=== PATIENT | female | born 1935 | race African-American/Black ===

== ENCOUNTER 2021-01-31 07:08 | Inpatient (IN) | payer MEDICARE ==
[2021-01-31] MEDS ORDERED: Morphine 4 MG/ML VIAL ONE (07:15)
[2021-01-31 07:26] LABS: #Lymphocytes 1.3 thou/uL (1.20-3.40); #Monocytes 0.3 thou/uL (0.11-0.59); #Neutrophils 3.9 thou/uL (1.40-6.50); %Basophils 0.8 % (0.0-1.0); %Eosinophils 0.6 % (0.0-10.0); %Lymphocytes 23.9 % (21.0-51.0); %Monocytes 4.9 % (0.0-10.0); %Neutrophils 69.9 % (42.0-75.0); Hemoglobin 11.9 g/dL (12.0-16.0); Mean Corpuscular HGB CONC 32.5 g/dL (32.0-36.0); Mean Corpuscular Hemoglobin 33.4 pg (27.0-31.0); Mean Platelet Volume 8.7 fL (7.4-10.4); Platelet Count 228 thou/uL (130-400); RBC Distribution Width 12.3 % (11.5-14.5); Red Blood Cell (RBC) Count 3.55 mill/uL (4.20-5.40); White Blood Cell (WBC) Count 5.6 thou/uL (4.8-10.8)
[2021-01-31 07:52] LABS: CKMB 2.3 ng/mL (0-6.6)
[2021-01-31 08:02] LABS: ALT (SGPT) 9 U/L (8-55); AST (SGOT) 15 U/L (5-34); Alkaline Phosphatase 42 U/L (40-110); Anion Gap 18 mmol/L (10-20); BUN (Urea Nitrogen) 9 mg/dL (9.8-20.1); Bilirubin, Total 0.5 mg/dL (0.2-1.2); Calc. Creatinine Clearance 0 mL/min (70-130); Calcium 9.2 mg/dL (7.8-10.44); Carbon Dioxide 23 mmol/L (23-31); Chloride 100 mmol/L (98-107); Globulin 3.1 g/dL (2.4-3.5); Glucose 178 mg/dL (83-110); Lipase 87 U/L (8-78); Potassium 3.6 mmol/L (3.5-5.1); Protein, Total 7.1 g/dL (5.8-8.1); Sodium 137 mmol/L (136-145)
[2021-01-31] MEDS ORDERED: Famotidine/PF 20 mg/2ml Vial ONE (08:51)
[2021-01-31] MEDS ORDERED: Ketorolac Tromethamine 30 MG/ML VIAL ONE (08:51)
[2021-01-31 10:15] LABS: Troponin I 0.069 ng/mL (< 0.028)
[2021-01-31] MEDS ORDERED: HumaLOG 300 UNITS/3 ML VIAL SC PRN ×2 (10:48)
[2021-01-31] MEDS ORDERED: Acetaminophen 325 MG TAB PO PRN (10:48)
[2021-01-31] MEDS ORDERED: Dextrose 5% in Water 1,000 ML IV PRN (10:48)
[2021-01-31] MEDS ORDERED: Dextrose 50% Abboject 50 ML SYRINGE SLOW IVP PRN (10:48)
[2021-01-31] MEDS ORDERED: Ondansetron ODT 4 MG TAB PO PRN (10:48)
[2021-01-31 11:32] LABS: Magnesium 1.1 mg/dL (1.6-2.6)
[2021-01-31] MEDS ORDERED: Aspirin Chewable 81 MG TAB PO SCH (13:00)
[2021-01-31] MEDS ORDERED: Magnesium 2 GM/50 ML 2 GM in Premix Bag 1 BAG IVPB SCH (13:00)
[2021-01-31 13:40] VITALS: BMI 19.7
[2021-01-31] MEDS: Sodium Chloride 0.9% 1,000 ML IV SCH ×2 (16:14→23:48)
[2021-01-31 16:46] LABS: SARS-CoV-2 PCR by NAA Not Detected (NotDetected)
[2021-01-31 17:15] LABS: Troponin I 0.085 ng/mL (< 0.028)
[2021-01-31] MEDS ORDERED: Pantoprazole 40 MG VIAL IVP SCH (23:00)
[2021-02-01 05:43] LABS: #Eosinphils 0.1 thou/uL (0.0-0.7); #Lymphocytes 1.7 thou/uL (1.20-3.40); #Monocytes 0.6 thou/uL (0.11-0.59); #Neutrophils 2.8 thou/uL (1.40-6.50); %Basophils 0.7 % (0.0-1.0); %Eosinophils 1.4 % (0.0-10.0); %Lymphocytes 32.8 % (21.0-51.0); %Monocytes 11.9 % (0.0-10.0); %Neutrophils 53.2 % (42.0-75.0); Hemoglobin 10.7 g/dL (12.0-16.0); Mean Corpuscular HGB CONC 32.9 g/dL (32.0-36.0); Mean Corpuscular Hemoglobin 33.6 pg (27.0-31.0); Platelet Count 213 thou/uL (130-400); RBC Distribution Width 12.1 % (11.5-14.5); Red Blood Cell (RBC) Count 3.19 mill/uL (4.20-5.40); White Blood Cell (WBC) Count 5.2 thou/uL (4.8-10.8)
[2021-02-01 06:11] LABS: ALT (SGPT) 8 U/L (8-55); AST (SGOT) 14 U/L (5-34); Albumin 3.3 g/dL (3.4-4.8); Alkaline Phosphatase 34 U/L (40-110); Anion Gap 12 mmol/L (10-20); BUN (Urea Nitrogen) 7 mg/dL (9.8-20.1); Bilirubin, Total 0.6 mg/dL (0.2-1.2); Calc. Creatinine Clearance 56 mL/min (70-130); Calcium 8.9 mg/dL (7.8-10.44); Carbon Dioxide 26 mmol/L (23-31); Cardiac Risk 3.6 (Less than 4.5); Chloride 103 mmol/L (98-107); Cholesterol 168 mg/dl (< 200 Desired); Globulin 2.7 g/dL (2.4-3.5); Glucose 98 mg/dL (83-110); HDL Cholesterol 47 mg/dL (>60 Neg Risk); LDL Cholesterol, Calculated 110 mg/dL; Magnesium 1.5 mg/dL (1.6-2.6); Potassium 3.2 mmol/L (3.5-5.1); Sodium 138 mmol/L (136-145); Triglycerides 57 mg/dL (Less than 150)
[2021-02-01] MEDS ORDERED: Artificial Tear Sol 15 ML BOT EA EYE PRN (09:26)
[2021-02-01] MEDS ORDERED: Sodium Chloride 0.65% Nasal 44 ML BOT EA NARE PRN (09:26)
[2021-02-01] MEDS ORDERED: GUAIFENESIN SF SOLN 200 MG/10 ML UDCUP PO PRN (09:26)
[2021-02-01] MEDS ORDERED: hydrALAZINE 20 MG/ML VIAL SLOW IVP PRN (09:26)
[2021-02-01] MEDS ORDERED: Loratadine 10 MG TAB PO PRN (09:26)
[2021-02-01] MEDS ORDERED: Senokot S 8.6-50 MG TAB PO PRN (09:26)
[2021-02-01] MEDS ORDERED: Bisacodyl 5 MG TAB PO PRN (09:26)
[2021-02-01] MEDS ORDERED: Loperamide HCl 2 MG CAP PO PRN (09:26)
[2021-02-01] MEDS ORDERED: Ondansetron PF 4 MG/2 ML Vial IVP PRN (09:26)
[2021-02-01] MEDS ORDERED: Zolpidem Tartrate 5 MG TAB PO PRN (09:26)
[2021-02-01] MEDS ORDERED: Hydrocerin (Eucerin) Cream 120 gm Jar TOP PRN (09:26)
[2021-02-01] MEDS ORDERED: Calcium Carbonate 500 MG ChewTAB PO PRN (09:26)
[2021-02-01] MEDS ORDERED: HYDROcodone/Acetaminophen 5/325 mg Tablet PO PRN (09:26)
[2021-02-01] MEDS ORDERED: Cepastat Lozenges 1 LOZ PO PRN (09:26)
[2021-02-01] MEDS ORDERED: Lisinopril 20 MG TAB PO SCH (10:15)
[2021-02-01] MEDS ORDERED: Amlodipine 5 MG TAB PO SCH (10:15)
[2021-02-01] MEDS: Aspirin Chewable 81 MG TAB PO SCH (10:19)
[2021-02-01] MEDS: Pantoprazole 40 MG VIAL IVP SCH (10:19)
[2021-02-01] MEDS ORDERED: Potassium Chloride 20 MEQ TAB PO SCH (11:30)
[2021-02-01] MEDS ORDERED: Magnesium Sulfate 3 GM in Sodium Chloride 0.9% 100 ML IVPB SCH (12:00)
[2021-02-01] MEDS: Sodium Chloride 0.9% 1,000 ML IV SCH (15:30)
[2021-02-01] MEDS ORDERED: Communication Order-Pharmacy FS SCH (15:30)
[2021-02-01] MEDS: Gabapentin 400 MG CAP PO SCH ×2 (16:06→21:14)
[2021-02-01] MEDS ORDERED: Morphine 4 MG/ML VIAL ONE (18:06)
[2021-02-01] MEDS: Atorvastatin Calcium 40 MG TAB PO SCH (21:14)
[2021-02-01] MEDS: Metoprolol Tartrate 25 MG TAB PO SCH (21:14)
[2021-02-02 04:48] LABS: #Basophils 0.1 thou/uL (0.0-0.2); #Eosinphils 0.2 thou/uL (0.0-0.7); #Monocytes 0.7 thou/uL (0.11-0.59); #Neutrophils 2.9 thou/uL (1.40-6.50); %Basophils 1.3 % (0.0-1.0); %Eosinophils 3.3 % (0.0-10.0); %Lymphocytes 33.9 % (21.0-51.0); %Monocytes 11.9 % (0.0-10.0); %Neutrophils 49.7 % (42.0-75.0); Hemoglobin 11.7 g/dL (12.0-16.0); Mean Corpuscular HGB CONC 33.1 g/dL (32.0-36.0); Mean Corpuscular Hemoglobin 33.8 pg (27.0-31.0); Mean Platelet Volume 8.8 fL (7.4-10.4); Platelet Count 238 thou/uL (130-400); RBC Distribution Width 12.3 % (11.5-14.5); Red Blood Cell (RBC) Count 3.47 mill/uL (4.20-5.40); White Blood Cell (WBC) Count 5.8 thou/uL (4.8-10.8)
[2021-02-02 05:09] LABS: ALT (SGPT) 9 U/L (8-55); AST (SGOT) 15 U/L (5-34); Albumin 3.5 g/dL (3.4-4.8); Alkaline Phosphatase 39 U/L (40-110); Anion Gap 13 mmol/L (10-20); BUN (Urea Nitrogen) 8 mg/dL (9.8-20.1); Bilirubin, Total 0.8 mg/dL (0.2-1.2); Calc. Creatinine Clearance 48 mL/min (70-130); Calcium 8.9 mg/dL (7.8-10.44); Carbon Dioxide 22 mmol/L (23-31); Chloride 105 mmol/L (98-107); Globulin 2.9 g/dL (2.4-3.5); Glucose 110 mg/dL (83-110); Potassium 3.9 mmol/L (3.5-5.1); Protein, Total 6.4 g/dL (5.8-8.1); Sodium 136 mmol/L (136-145)
[2021-02-02] MEDS ORDERED: Sodium Chloride 0.9% 1,000 ML IV SCH ×2 (06:00→08:51)
[2021-02-02] MEDS: Levothyroxine Sodium 50 MCG TAB PO SCH (06:07)
[2021-02-02] MEDS: Metoprolol Tartrate 25 MG TAB PO SCH (06:07)
[2021-02-02] MEDS ORDERED: Heparin 10,000 UNITS/ 10 ML VIAL ONE (06:49)
[2021-02-02] MEDS ORDERED: Fentanyl 100 MCG/2 ML VIAL ONE (08:08)
[2021-02-02] MEDS ORDERED: Midazolam HCl 2 mg/2 ml Vial ONE (08:08)
[2021-02-02] MEDS ORDERED: Protamine Sulfate 50 MG/5 ML VIAL ONE (08:33)
[2021-02-02] MEDS ORDERED: Acetaminophen/Codeine 30-300mg Tablet PO PRN ×2 (08:50)
[2021-02-02] MEDS ORDERED: Amlodipine 5 mg/Benazepril 20 mg CAP PO SCH (09:00)
[2021-02-02] MEDS ORDERED: Amlodipine 5 MG TAB PO SCH (09:00)
[2021-02-02] MEDS ORDERED: Non-Formulary Item 1 EACH (Levothyroxine Sodium [Levothyroxine] 50 MCG Capsule) PO SCH (09:00)
[2021-02-02] MEDS ORDERED: Lisinopril 20 MG TAB PO SCH (09:00)
[2021-02-02] MEDS ORDERED: Carvedilol 6.25 MG TAB PO SCH (09:00)
[2021-02-02] MEDS ORDERED: Sodium Chloride 0.9% 200 ML IV PRN (09:13)
[2021-02-02] MEDS ORDERED: Iopamidol 370 76% 100 ML VIAL ONE (10:53)
[2021-02-02] MEDS ORDERED: Iopamidol 370 76% 50 ML VIAL FS ONE (10:53)
[2021-02-02] MEDS: Pantoprazole 40 MG VIAL IVP SCH (10:57)
[2021-02-02] MEDS: Aspirin Chewable 81 MG TAB PO SCH (10:57)
[2021-02-02] MEDS: Gabapentin 400 MG CAP PO SCH ×3 (10:57→20:28)
[2021-02-02] MEDS: Cyanocobalamin (Vitamin B-12) 1,000 MCG TAB PO SCH (10:58)
[2021-02-02] MEDS: Folic Acid 1 MG TAB PO SCH (10:58)
[2021-02-02] MEDS: Carvedilol 6.25 MG TAB PO SCH (16:41)
[2021-02-02] MEDS: Atorvastatin Calcium 40 MG TAB PO SCH (20:29)
[2021-02-03 05:25] LABS: #Eosinphils 0.1 thou/uL (0.0-0.7); #Lymphocytes 1.4 thou/uL (1.20-3.40); #Monocytes 0.7 thou/uL (0.11-0.59); #Neutrophils 3.4 thou/uL (1.40-6.50); %Basophils 0.7 % (0.0-1.0); %Eosinophils 1.9 % (0.0-10.0); %Lymphocytes 24.8 % (21.0-51.0); %Neutrophils 59.5 % (42.0-75.0); Mean Corpuscular HGB CONC 34.1 g/dL (32.0-36.0); Mean Corpuscular Hemoglobin 34.8 pg (27.0-31.0); Mean Platelet Volume 9.6 fL (7.4-10.4); Platelet Count 228 thou/uL (130-400); RBC Distribution Width 12.3 % (11.5-14.5); Red Blood Cell (RBC) Count 3.17 mill/uL (4.20-5.40); White Blood Cell (WBC) Count 5.6 thou/uL (4.8-10.8)
[2021-02-03 05:37] LABS: ALT (SGPT) 9 U/L (8-55); AST (SGOT) 14 U/L (5-34); Albumin 3.1 g/dL (3.4-4.8); Alkaline Phosphatase 38 U/L (40-110); Anion Gap 12 mmol/L (10-20); BUN (Urea Nitrogen) 7 mg/dL (9.8-20.1); Bilirubin, Total 0.8 mg/dL (0.2-1.2); Calc. Creatinine Clearance 55 mL/min (70-130); Calcium 8.4 mg/dL (7.8-10.44); Carbon Dioxide 23 mmol/L (23-31); Chloride 105 mmol/L (98-107); Globulin 2.8 g/dL (2.4-3.5); Glucose 100 mg/dL (83-110); Potassium 3.5 mmol/L (3.5-5.1); Protein, Total 5.9 g/dL (5.8-8.1); Sodium 136 mmol/L (136-145)
[2021-02-03] MEDS: Levothyroxine Sodium 50 MCG TAB PO SCH (05:50)
[2021-02-03] MEDS: Gabapentin 400 MG CAP PO SCH ×3 (09:28→21:18)
[2021-02-03] MEDS: Cyanocobalamin (Vitamin B-12) 1,000 MCG TAB PO SCH (09:28)
[2021-02-03] MEDS: Furosemide 20 MG TAB PO SCH (09:28)
[2021-02-03] MEDS: Folic Acid 1 MG TAB PO SCH (09:29)
[2021-02-03] MEDS: Carvedilol 6.25 MG TAB PO SCH ×2 (09:29→17:44)
[2021-02-03] MEDS: Aspirin Chewable 81 MG TAB PO SCH (09:29)
[2021-02-03] MEDS ORDERED: Lidocaine 1% PF 5 ML VIAL ONE (13:23)
[2021-02-03] MEDS ORDERED: PROPOFOL 200 MG/20 ML VIAL ONE (13:23)
[2021-02-03] MEDS: Atorvastatin Calcium 40 MG TAB PO SCH (21:17)
[2021-02-04] MEDS: Levothyroxine Sodium 50 MCG TAB PO SCH (06:06)
[2021-02-04 07:53] VITALS: TEMP 98.3
[2021-02-04] MEDS: Furosemide 20 MG TAB PO SCH (08:58)
[2021-02-04] MEDS: Cyanocobalamin (Vitamin B-12) 1,000 MCG TAB PO SCH (08:58)
[2021-02-04] MEDS: Gabapentin 400 MG CAP PO SCH (08:58)
[2021-02-04 08:59] VITALS: BP 139/82
[2021-02-04] MEDS: Folic Acid 1 MG TAB PO SCH (08:59)
[2021-02-04] MEDS: Carvedilol 6.25 MG TAB PO SCH (08:59)
[2021-02-04] MEDS: Aspirin Chewable 81 MG TAB PO SCH (08:59)
== END 2021-02-04 10:32 | disposition home or self-care (01) | DRG 280 ==
LOC: ERS 07:08 → ERHOLD 08:42 → 2NO 13:00 → OBSVTOIN 02-01 20:50
PROVIDERS: ADMIT Family Medicine; ATTEND Internal Medicine
PROC: 4A023N7 Measurement of Cardiac Sampling and Pressure, Left Heart, Percutaneous Approach (ICD-10-PCS; principal; 2021-02-02)
PROC: B2111ZZ Fluoroscopy of Multiple Coronary Arteries using Low Osmolar Contrast (ICD-10-PCS; 2021-02-02)
PROC: 0DB68ZX Excision of Stomach, Via Natural or Artificial Opening Endoscopic, Diagnostic (ICD-10-PCS; 2021-02-03)
PROC: 0W3P8ZZ Control Bleeding in Gastrointestinal Tract, Via Natural or Artificial Opening Endoscopic (ICD-10-PCS; 2021-02-03)
DX: R07.89 Other chest pain (principal); K25.4 Chronic or unspecified gastric ulcer with hemorrhage; I21.A1 Myocardial infarction type 2; I50.20 Unspecified systolic (congestive) heart failure; I42.8 Other cardiomyopathies; Z20.822 Contact with and (suspected) exposure to COVID-19; E11.9 Type 2 diabetes mellitus without complications; K80.20 Calculus of gallbladder without cholecystitis without obstruction; E03.9 Hypothyroidism, unspecified; D53.9 Nutritional anemia, unspecified; R00.8 Other abnormalities of heart beat; I11.0 Hypertensive heart disease with heart failure; K44.9 Diaphragmatic hernia without obstruction or gangrene; K86.89 Other specified diseases of pancreas; M19.90 Unspecified osteoarthritis, unspecified site; E87.6 Hypokalemia; E83.42 Hypomagnesemia; Z90.49 Acquired absence of other specified parts of digestive tract; Z90.710 Acquired absence of both cervix and uterus; Z98.890 Other specified postprocedural states
CPT/HCPCS: 36415; 36416; 71045; 71275; 74174; 74181; 76705; 80053; 80061; 82553; 83690; 83735; 84443; 84484; 85025; 85347; 88305; 88312; 90471; 90732; 93005; 93010; 93306; 93458; 96374; 96375; 96376; 99152; C9113; G0009; G0378; J1644; J1885; J2250; J2270; J2704; J2720; J3010; J3475; J3490; J7050; Q0162; Q9967; S0028; U0003; U0005

== ENCOUNTER 2021-02-04 16:24 | Inpatient (IN) | payer MEDICARE ==
[2021-02-04 17:19] LABS: #Eosinphils 0.1 thou/uL (0.0-0.7); #Monocytes 0.7 thou/uL (0.11-0.59); #Neutrophils 3.8 thou/uL (1.40-6.50); %Basophils 0.5 % (0.0-1.0); %Eosinophils 1.5 % (0.0-10.0); %Lymphocytes 17.8 % (21.0-51.0); %Monocytes 12.9 % (0.0-10.0); %Neutrophils 67.3 % (42.0-75.0); Hemoglobin 12.6 g/dL (12.0-16.0); Mean Corpuscular HGB CONC 32.5 g/dL (32.0-36.0); Mean Corpuscular Hemoglobin 33.3 pg (27.0-31.0); Mean Platelet Volume 8.9 fL (7.4-10.4); Platelet Count 235 thou/uL (130-400); RBC Distribution Width 12.3 % (11.5-14.5); Red Blood Cell (RBC) Count 3.77 mill/uL (4.20-5.40); White Blood Cell (WBC) Count 5.7 thou/uL (4.8-10.8)
[2021-02-04] MEDS ORDERED: Famotidine/PF 20 mg/2ml Vial ONE (17:32)
[2021-02-04] MEDS ORDERED: Pantoprazole 40 MG VIAL ONE (17:32)
[2021-02-04] MEDS ORDERED: Water For Inject, Bacteriostat 30 ML ONE (17:32)
[2021-02-04 17:36] LABS: ALT (SGPT) 28 U/L (8-55); AST (SGOT) 53 U/L (5-34); Alkaline Phosphatase 69 U/L (40-110); Anion Gap 19 mmol/L (10-20); BUN (Urea Nitrogen) 12 mg/dL (9.8-20.1); Bilirubin, Total 0.7 mg/dL (0.2-1.2); Calc. Creatinine Clearance 0 mL/min (70-130); Calcium 7.6 mg/dL (7.8-10.44); Carbon Dioxide 17 mmol/L (23-31); Chloride 102 mmol/L (98-107); Globulin 2.9 g/dL (2.4-3.5); Glucose 233 mg/dL (83-110); Potassium 3.9 mmol/L (3.5-5.1); Protein, Total 5.9 g/dL (5.8-8.1); Sodium 134 mmol/L (136-145)
[2021-02-04 18:16] LABS: CKMB 1.6 ng/mL (0-6.6)
[2021-02-04] MEDS ORDERED: Acetaminophen 650 MG Suppository PR PRN (20:29)
[2021-02-04] MEDS ORDERED: Ondansetron PF 4 MG/2 ML Vial IVP PRN (20:29)
[2021-02-04] MEDS ORDERED: Acetaminophen 325 MG TAB PO PRN (20:29)
[2021-02-04] MEDS ORDERED: Ondansetron ODT 4 MG TAB PO PRN (20:29)
[2021-02-04 20:58] LABS: Troponin I 1.582 ng/mL (< 0.028)
[2021-02-04 22:29] VITALS: BMI 18.8
[2021-02-04] MEDS ORDERED: Morphine 4 MG/ML VIAL SLOW IVP SCH (22:45)
[2021-02-04] MEDS ORDERED: Dextrose 50% Abboject 50 ML SYRINGE SLOW IVP PRN (22:56)
[2021-02-04] MEDS ORDERED: HumaLOG 300 UNITS/3 ML VIAL SC PRN ×2 (22:56)
[2021-02-04] MEDS ORDERED: Dextrose 5% in Water 1,000 ML IV PRN (22:56)
[2021-02-04] MEDS: Sucralfate 1 GM TAB PO SCH (22:57)
[2021-02-04] MEDS ORDERED: Sodium Chloride 0.9% 1,000 ML IV SCH (23:30)
[2021-02-04 23:54] LABS: #Eosinphils 0.1 thou/uL (0.0-0.7); #Lymphocytes 1.3 thou/uL (1.20-3.40); #Monocytes 0.8 thou/uL (0.11-0.59); #Neutrophils 3.2 thou/uL (1.40-6.50); %Basophils 0.6 % (0.0-1.0); %Lymphocytes 24.2 % (21.0-51.0); %Monocytes 14.7 % (0.0-10.0); %Neutrophils 59.5 % (42.0-75.0); Hemoglobin 12.1 g/dL (12.0-16.0); Mean Corpuscular HGB CONC 32.9 g/dL (32.0-36.0); Mean Corpuscular Hemoglobin 33.9 pg (27.0-31.0); Mean Platelet Volume 8.9 fL (7.4-10.4); Platelet Count 241 thou/uL (130-400); RBC Distribution Width 12.4 % (11.5-14.5); Red Blood Cell (RBC) Count 3.58 mill/uL (4.20-5.40); White Blood Cell (WBC) Count 5.4 thou/uL (4.8-10.8)
[2021-02-05 00:03] LABS: Troponin I 5.561 ng/mL (< 0.028)
[2021-02-05 05:26] LABS: Mean Corpuscular HGB CONC 33.1 g/dL (32.0-36.0); Mean Corpuscular Hemoglobin 33.6 pg (27.0-31.0); Mean Platelet Volume 8.8 fL (7.4-10.4); Platelet Count 221 thou/uL (130-400); RBC Distribution Width 12.3 % (11.5-14.5); Red Blood Cell (RBC) Count 3.57 mill/uL (4.20-5.40); White Blood Cell (WBC) Count 4.7 thou/uL (4.8-10.8)
[2021-02-05 05:35] LABS: Anion Gap 12 mmol/L (10-20); BUN (Urea Nitrogen) 9 mg/dL (9.8-20.1); Calc. Creatinine Clearance 55 mL/min (70-130); Calcium 8.5 mg/dL (7.8-10.44); Carbon Dioxide 23 mmol/L (23-31); Chloride 105 mmol/L (98-107); Glucose 122 mg/dL (83-110); Potassium 3.4 mmol/L (3.5-5.1); Sodium 137 mmol/L (136-145)
[2021-02-05] MEDS: Morphine 4 MG/ML VIAL SLOW IVP PRN (05:48)
[2021-02-05 06:04] LABS: Troponin I 14.815 ng/mL (< 0.028)
[2021-02-05 06:18] LABS: Lactic Acid 1.2 mmol/L (0.5-2.2)
[2021-02-05 06:29] LABS: Eosinophils 4 % (0-10); Lymphocytes 32 % (21-51); MDiff Complete? YES; Monocytes 15 % (0-10); Neutrophil 49 % (42-75)
[2021-02-05] MEDS ORDERED: Potassium Chloride 20 MEQ TAB PO SCH (07:45)
[2021-02-05] MEDS ORDERED: Heparin 10,000 UNITS/ 10 ML VIAL ONE (07:48)
[2021-02-05] MEDS ORDERED: Nitroglycerin 100MG/250ML BOT 0 ML ONE (07:49)
[2021-02-05] MEDS ORDERED: Fentanyl 100 MCG/2 ML VIAL ONE (08:12)
[2021-02-05] MEDS ORDERED: Midazolam HCl 2 mg/2 ml Vial ONE (08:12)
[2021-02-05] MEDS ORDERED: Iopamidol 370 76% 100 ML VIAL ONE (08:26)
[2021-02-05] MEDS ORDERED: Acetaminophen/Codeine 30-300mg Tablet PO PRN (08:36)
[2021-02-05] MEDS ORDERED: Sodium Chloride 0.9% 200 ML IV PRN (08:36)
[2021-02-05] MEDS ORDERED: Sodium Chloride 0.9% 250 ML IV SCH (08:45)
[2021-02-05] MEDS: Sucralfate 1 GM TAB PO SCH ×4 (10:26→20:41)
[2021-02-05] MEDS: Nitroglycerin 2% Ointment 1 INCH/1 GM Packet TOP SCH ×2 (10:27→20:47)
[2021-02-05] MEDS: Pantoprazole 40 MG VIAL IVP SCH (10:28)
[2021-02-05] MEDS ORDERED: Metoprolol Tartrate 5 MG/5 ML VIAL IVP PRN (10:42)
[2021-02-05 11:02] LABS: Magnesium 1.4 mg/dL (1.6-2.6)
[2021-02-05 14:39] LABS: Bilirubin Negative (Negative); Blood, Urine Negative (Negative); Clarity Clear (Clear); Glucose, Urine (Dipstick) Normal (Negative); Ketone, Urine Negative (Negative); Leukocyte 500 Leu/uL (Negative); Nitrite Negative (Negative); Protein, Urine (Dipstick) 10 mg/dL (Neg-Trace); RBC/HPF 0-3 HPF (0-3); Urobilinogen Normal mg/dL (Less than 2); pH, Urine 5.5 (5.0-9.0)
[2021-02-05 14:54] LABS: Bacteria/HPF 2+ HPF (None Seen); Specific Gravity, Urine 1.052 (1.002-1.036)
[2021-02-05 14:55] LABS: Urine Culture Reflex No No
[2021-02-05] MEDS ORDERED: Electrolyte Replacement Protocol 1 EACH FS SCH (16:30)
[2021-02-05] MEDS ORDERED: Electrolyte Replacement Protocol FS PRN (16:30)
[2021-02-05] MEDS ORDERED: Sucralfate 1 GM TAB PO SCH (20:29)
[2021-02-05] MEDS: Atorvastatin Calcium 40 MG TAB PO SCH (20:40)
[2021-02-05] MEDS: Gabapentin 400 MG CAP PO SCH (20:40)
[2021-02-05] MEDS: metFORMIN 500 MG TAB PO SCH (20:40)
[2021-02-05] MEDS ORDERED: Cepastat Lozenges 1 LOZ PO PRN (22:28)
[2021-02-05] MEDS ORDERED: Mag-Al 1200 mg/1200 mg/30 ML UDCUP PO PRN (22:40)
[2021-02-06 05:20] LABS: Anion Gap 10 mmol/L (10-20); BUN (Urea Nitrogen) 7 mg/dL (9.8-20.1); Calc. Creatinine Clearance 58 mL/min (70-130); Calcium 8.6 mg/dL (7.8-10.44); Carbon Dioxide 25 mmol/L (23-31); Chloride 103 mmol/L (98-107); Glucose 128 mg/dL (83-110); Magnesium 1.2 mg/dL (1.6-2.6); Potassium 3.1 mmol/L (3.5-5.1); Sodium 135 mmol/L (136-145)
[2021-02-06] MEDS: Levothyroxine Sodium 50 MCG TAB PO SCH (05:25)
[2021-02-06] MEDS ORDERED: Potassium Chloride 20 MEQ TAB PO SCH (05:30)
[2021-02-06] MEDS ORDERED: Magnesium 2 GM/50 ML 2 GM in Premix Bag 1 BAG IVPB SCH (05:30)
[2021-02-06] MEDS: Magnesium 2 GM/50 ML 2 GM in Premix Bag 1 BAG IVPB SCH ×2 (06:27→09:26)
[2021-02-06] MEDS: Sucralfate 1 GM TAB PO SCH ×4 (09:31→20:38)
[2021-02-06] MEDS: Carvedilol 6.25 MG TAB PO SCH ×2 (09:32→17:12)
[2021-02-06] MEDS: Aspirin Chewable 81 MG TAB PO SCH (09:32)
[2021-02-06] MEDS: Furosemide 20 MG TAB PO SCH (09:33)
[2021-02-06] MEDS: Folic Acid 1 MG TAB PO SCH (09:33)
[2021-02-06] MEDS: Gabapentin 400 MG CAP PO SCH ×3 (09:33→20:38)
[2021-02-06] MEDS: Cyanocobalamin (Vitamin B-12) 1,000 MCG TAB PO SCH (09:33)
[2021-02-06] MEDS: Nitroglycerin 2% Ointment 1 INCH/1 GM Packet TOP SCH ×2 (09:34→20:42)
[2021-02-06] MEDS: metFORMIN 500 MG TAB PO SCH ×2 (09:34→20:39)
[2021-02-06] MEDS: Pantoprazole 40 MG VIAL IVP SCH (09:44)
[2021-02-06 14:57] LABS: Magnesium 2.1 mg/dL (1.6-2.6)
[2021-02-06] MEDS: Atorvastatin Calcium 40 MG TAB PO SCH (20:39)
[2021-02-07 05:23] LABS: Hemoglobin 11.2 g/dL (12.0-16.0); Mean Corpuscular HGB CONC 31.6 g/dL (32.0-36.0); Mean Corpuscular Hemoglobin 32.4 pg (27.0-31.0); Mean Platelet Volume 8.7 fL (7.4-10.4); Platelet Count 236 thou/uL (130-400); RBC Distribution Width 12.1 % (11.5-14.5); Red Blood Cell (RBC) Count 3.47 mill/uL (4.20-5.40); White Blood Cell (WBC) Count 4.8 thou/uL (4.8-10.8)
[2021-02-07 05:34] LABS: Anion Gap 10 mmol/L (10-20); BUN (Urea Nitrogen) 8 mg/dL (9.8-20.1); Calc. Creatinine Clearance 54 mL/min (70-130); Calcium 8.4 mg/dL (7.8-10.44); Carbon Dioxide 25 mmol/L (23-31); Chloride 103 mmol/L (98-107); Glucose 124 mg/dL (83-110); Magnesium 1.8 mg/dL (1.6-2.6); Potassium 3.9 mmol/L (3.5-5.1); Sodium 134 mmol/L (136-145)
[2021-02-07] MEDS ORDERED: Magnesium 2 GM/50 ML 2 GM in Premix Bag 1 BAG IVPB SCH (06:00)
[2021-02-07 06:27] LABS: Band 4 % (5-11); Eosinophils 4 % (0-10); Lymphocytes 37 % (21-51); MDiff Complete? YES; Monocytes 4 % (0-10); Neutrophil 51 % (42-75)
[2021-02-07] MEDS: Levothyroxine Sodium 50 MCG TAB PO SCH (06:33)
[2021-02-07] MEDS: Nitroglycerin 2% Ointment 1 INCH/1 GM Packet TOP SCH ×2 (08:03→20:00)
[2021-02-07] MEDS: Gabapentin 400 MG CAP PO SCH ×3 (08:04→19:56)
[2021-02-07] MEDS: Aspirin Chewable 81 MG TAB PO SCH (08:04)
[2021-02-07] MEDS: metFORMIN 500 MG TAB PO SCH ×2 (08:04→19:55)
[2021-02-07] MEDS: Sucralfate 1 GM TAB PO SCH ×4 (08:04→19:55)
[2021-02-07] MEDS: Pantoprazole 40 MG VIAL IVP SCH (08:05)
[2021-02-07] MEDS: Folic Acid 1 MG TAB PO SCH (08:05)
[2021-02-07] MEDS: Cyanocobalamin (Vitamin B-12) 1,000 MCG TAB PO SCH (08:05)
[2021-02-07] MEDS: Carvedilol 6.25 MG TAB PO SCH ×2 (08:05→16:21)
[2021-02-07] MEDS: Furosemide 20 MG TAB PO SCH (08:06)
[2021-02-07] MEDS ORDERED: Milk Of Magnesia 30 ML UDCUP PO PRN (11:05)
[2021-02-07] MEDS ORDERED: Docusate 100 MG CAP PO PRN (11:05)
[2021-02-07] MEDS ORDERED: Sodium Chloride 0.9% 250 ML 250 ML IV SCH (16:15)
[2021-02-07] MEDS ORDERED: Sodium Chloride 0.9% 250 ML IV SCH (17:15)
[2021-02-07 17:52] LABS: #Eosinphils 0.2 thou/uL (0.0-0.7); #Lymphocytes 1.3 thou/uL (1.20-3.40); #Monocytes 0.8 thou/uL (0.11-0.59); #Neutrophils 3.2 thou/uL (1.40-6.50); %Basophils 0.5 % (0.0-1.0); %Eosinophils 3.8 % (0.0-10.0); %Lymphocytes 23.9 % (21.0-51.0); %Monocytes 13.7 % (0.0-10.0); %Neutrophils 58.1 % (42.0-75.0); Hemoglobin 11.3 g/dL (12.0-16.0); Mean Corpuscular HGB CONC 32.2 g/dL (32.0-36.0); Mean Corpuscular Hemoglobin 33.3 pg (27.0-31.0); Mean Platelet Volume 8.8 fL (7.4-10.4); Platelet Count 210 thou/uL (130-400); RBC Distribution Width 12.2 % (11.5-14.5); White Blood Cell (WBC) Count 5.5 thou/uL (4.8-10.8)
[2021-02-07 18:14] LABS: Anion Gap 12 mmol/L (10-20); BUN (Urea Nitrogen) 10 mg/dL (9.8-20.1); Calc. Creatinine Clearance 49 mL/min (70-130); Calcium 8.5 mg/dL (7.8-10.44); Carbon Dioxide 22 mmol/L (23-31); Chloride 102 mmol/L (98-107); Glucose 138 mg/dL (83-110); Potassium 4.4 mmol/L (3.5-5.1); Sodium 132 mmol/L (136-145)
[2021-02-07] MEDS: Atorvastatin Calcium 40 MG TAB PO SCH (19:56)
[2021-02-07 23:45] LABS: Bacteria/HPF None Seen HPF (None Seen); Bilirubin Negative (Negative); Blood, Urine Negative (Negative); Clarity Clear (Clear); Glucose, Urine (Dipstick) Normal (Negative); Ketone, Urine Negative (Negative); Leukocyte 75 Leu/uL (Negative); Nitrite Negative (Negative); Protein, Urine (Dipstick) Negative (Neg-Trace); RBC/HPF 0-3 HPF (0-3); Specific Gravity, Urine 1.013 (1.002-1.036); Squamous Epithelial 0-3 HPF (0-3); Urobilinogen Normal mg/dL (Less than 2)
[2021-02-07 23:46] LABS: Urine Culture Reflex Yes Yes
[2021-02-08] MEDS: Morphine 4 MG/ML VIAL SLOW IVP PRN (04:07)
[2021-02-08 05:30] LABS: Hemoglobin 11.2 g/dL (12.0-16.0); Mean Corpuscular HGB CONC 32.9 g/dL (32.0-36.0); Mean Corpuscular Hemoglobin 33.5 pg (27.0-31.0); Mean Platelet Volume 8.5 fL (7.4-10.4); Platelet Count 234 thou/uL (130-400); RBC Distribution Width 12.1 % (11.5-14.5); Red Blood Cell (RBC) Count 3.34 mill/uL (4.20-5.40); White Blood Cell (WBC) Count 4.6 thou/uL (4.8-10.8)
[2021-02-08] MEDS: Levothyroxine Sodium 50 MCG TAB PO SCH (05:41)
[2021-02-08 05:48] LABS: Anion Gap 9 mmol/L (10-20); BUN (Urea Nitrogen) 11 mg/dL (9.8-20.1); Calc. Creatinine Clearance 50 mL/min (70-130); Calcium 8.4 mg/dL (7.8-10.44); Carbon Dioxide 26 mmol/L (23-31); Chloride 103 mmol/L (98-107); Glucose 123 mg/dL (83-110); Magnesium 1.7 mg/dL (1.6-2.6); Potassium 4.1 mmol/L (3.5-5.1); Sodium 134 mmol/L (136-145)
[2021-02-08 06:01] LABS: Band 2 % (5-11); Eosinophils 3 % (0-10); Lymphocytes 34 % (21-51); MDiff Complete? YES; Monocytes 7 % (0-10); Neutrophil 53 % (42-75); Reactive Lymphocytes 1 % (0-10)
[2021-02-08] MEDS ORDERED: Magnesium 2 GM/50 ML 2 GM in Premix Bag 1 BAG IVPB SCH (06:15)
[2021-02-08] MEDS: Furosemide 20 MG TAB PO SCH (07:41)
[2021-02-08] MEDS: Cyanocobalamin (Vitamin B-12) 1,000 MCG TAB PO SCH (09:07)
[2021-02-08] MEDS: Gabapentin 400 MG CAP PO SCH ×3 (09:07→20:59)
[2021-02-08] MEDS: Sucralfate 1 GM TAB PO SCH ×4 (09:07→21:03)
[2021-02-08] MEDS: metFORMIN 500 MG TAB PO SCH ×2 (09:07→21:00)
[2021-02-08] MEDS: Aspirin Chewable 81 MG TAB PO SCH (09:07)
[2021-02-08] MEDS: Folic Acid 1 MG TAB PO SCH (09:07)
[2021-02-08] MEDS: Pantoprazole 40 MG VIAL IVP SCH (09:08)
[2021-02-08] MEDS: Nitroglycerin 2% Ointment 1 INCH/1 GM Packet TOP SCH (09:08)
[2021-02-08] MEDS ORDERED: Ketorolac Tromethamine 30 MG/ML VIAL IVP PRN (19:17)
[2021-02-08] MEDS: Diclofenac 1% 100 GM GEL TP SCH (20:57)
[2021-02-08] MEDS: Atorvastatin Calcium 40 MG TAB PO SCH (21:00)
[2021-02-09 05:41] LABS: #Basophils 0.1 thou/uL (0.0-0.2); #Eosinphils 0.3 thou/uL (0.0-0.7); #Lymphocytes 1.8 thou/uL (1.20-3.40); #Monocytes 0.8 thou/uL (0.11-0.59); #Neutrophils 2.8 thou/uL (1.40-6.50); %Eosinophils 4.5 % (0.0-10.0); %Lymphocytes 31.1 % (21.0-51.0); %Monocytes 14.2 % (0.0-10.0); %Neutrophils 49.3 % (42.0-75.0); Hemoglobin 11.5 g/dL (12.0-16.0); Mean Corpuscular HGB CONC 33.3 g/dL (32.0-36.0); Mean Corpuscular Hemoglobin 34.1 pg (27.0-31.0); Mean Platelet Volume 8.4 fL (7.4-10.4); Platelet Count 255 thou/uL (130-400); RBC Distribution Width 12.1 % (11.5-14.5); Red Blood Cell (RBC) Count 3.37 mill/uL (4.20-5.40); White Blood Cell (WBC) Count 5.7 thou/uL (4.8-10.8)
[2021-02-09 05:55] LABS: Anion Gap 14 mmol/L (10-20); BUN (Urea Nitrogen) 10 mg/dL (9.8-20.1); Calc. Creatinine Clearance 49 mL/min (70-130); Calcium 8.7 mg/dL (7.8-10.44); Carbon Dioxide 20 mmol/L (23-31); Chloride 102 mmol/L (98-107); Glucose 133 mg/dL (83-110); Magnesium 1.5 mg/dL (1.6-2.6); Potassium 4.4 mmol/L (3.5-5.1); Sodium 132 mmol/L (136-145)
[2021-02-09] MEDS: Levothyroxine Sodium 50 MCG TAB PO SCH (06:06)
[2021-02-09] MEDS ORDERED: Magnesium 2 GM/50 ML 2 GM in Premix Bag 1 BAG IVPB SCH (06:30)
[2021-02-09 07:50] VITALS: TEMP 97.8
[2021-02-09] MEDS: Sucralfate 1 GM TAB PO SCH ×3 (08:42→17:26)
[2021-02-09] MEDS: Gabapentin 400 MG CAP PO SCH ×2 (08:43→15:01)
[2021-02-09] MEDS: Pantoprazole 40 MG VIAL IVP SCH (08:43)
[2021-02-09] MEDS: metFORMIN 500 MG TAB PO SCH (08:43)
[2021-02-09] MEDS: Cyanocobalamin (Vitamin B-12) 1,000 MCG TAB PO SCH (08:43)
[2021-02-09] MEDS: Folic Acid 1 MG TAB PO SCH (08:43)
[2021-02-09] MEDS: Aspirin Chewable 81 MG TAB PO SCH (08:43)
[2021-02-09] MEDS: Diclofenac 1% 100 GM GEL TP SCH ×2 (08:44→15:01)
[2021-02-09] MEDS ORDERED: Amiodarone 200 MG TAB PO SCH ×2 (09:30→21:00)
[2021-02-09 12:01] VITALS: BP 125/87
[2021-02-09 14:01] LABS: Magnesium 1.8 mg/dL (1.6-2.6)
[2021-02-23] MEDS ORDERED: Amiodarone 200 MG TAB PO SCH (09:00)
== END 2021-02-09 17:42 | disposition home or self-care (01) | DRG 281 ==
LOC: ERS 16:24 → 2SW 19:50 → OBSVTOIN 02-05 16:27
PROVIDERS: ADMIT Student in an Organized Health Care Education/Training Program; ATTEND Internal Medicine
PROC: 4A023N7 Measurement of Cardiac Sampling and Pressure, Left Heart, Percutaneous Approach (ICD-10-PCS; principal; 2021-02-05)
PROC: B2111ZZ Fluoroscopy of Multiple Coronary Arteries using Low Osmolar Contrast (ICD-10-PCS; 2021-02-05)
PROC: B2151ZZ Fluoroscopy of Left Heart using Low Osmolar Contrast (ICD-10-PCS; 2021-02-05)
DX: I51.4 Myocarditis, unspecified (principal); I21.4 Non-ST elevation (NSTEMI) myocardial infarction; I50.22 Chronic systolic (congestive) heart failure; E87.1 Hypo-osmolality and hyponatremia; I42.8 Other cardiomyopathies; I47.2 Ventricular tachycardia; N39.0 Urinary tract infection, site not specified; Z66 Do not resuscitate; Z20.822 Contact with and (suspected) exposure to COVID-19; I11.0 Hypertensive heart disease with heart failure; E11.9 Type 2 diabetes mellitus without complications; E78.5 Hyperlipidemia, unspecified; E03.9 Hypothyroidism, unspecified; M19.90 Unspecified osteoarthritis, unspecified site; K27.9 Peptic ulcer, site unspecified, unspecified as acute or chronic, without hemorrhage or perforation; K57.10 Diverticulosis of small intestine without perforation or abscess without bleeding; E83.42 Hypomagnesemia; K59.00 Constipation, unspecified; E87.6 Hypokalemia; I49.3 Ventricular premature depolarization; Z88.0 Allergy status to penicillin; Z88.2 Allergy status to sulfonamides; Z79.890 Hormone replacement therapy; Z79.84 Long term (current) use of oral hypoglycemic drugs; Z79.82 Long term (current) use of aspirin; Z79.899 Other long term (current) drug therapy; Z90.49 Acquired absence of other specified parts of digestive tract; Z90.710 Acquired absence of both cervix and uterus; Z79.01 Long term (current) use of anticoagulants; I95.9 Hypotension, unspecified
CPT/HCPCS: 36415; 36416; 71045; 71275; 74177; 80048; 80053; 81001; 82553; 83605; 83690; 83735; 83880; 84484; 85025; 87086; 93005; 93306; 93454; 94760; 96374; 96375; 99152; C1769; C9113; J1644; J1815; J1956; J2250; J2270; J3010; J3475; J7030; J7050; Q9967; S0028

== ENCOUNTER 2021-02-25 00:05 | Inpatient (IN) | payer MEDICARE ==
[2021-02-25] MEDS ORDERED: methylPREDNISolone Sod Succ 40 MG VIAL ONE (00:40)
[2021-02-25 00:43] LABS: #Basophils 0.1 thou/uL (0.0-0.2); #Eosinphils 0.1 thou/uL (0.0-0.7); #Lymphocytes 1.4 thou/uL (1.20-3.40); #Monocytes 0.9 thou/uL (0.11-0.59); #Neutrophils 6.4 thou/uL (1.40-6.50); %Lymphocytes 15.7 % (21.0-51.0); %Monocytes 10.2 % (0.0-10.0); Hemoglobin 10.2 g/dL (12.0-16.0); Mean Corpuscular HGB CONC 32.9 g/dL (32.0-36.0); Mean Platelet Volume 7.7 fL (7.4-10.4); Platelet Count 301 thou/uL (130-400); RBC Distribution Width 12.8 % (11.5-14.5); Red Blood Cell (RBC) Count 2.99 mill/uL (4.20-5.40); White Blood Cell (WBC) Count 8.8 thou/uL (4.8-10.8)
[2021-02-25] MEDS ORDERED: Aspirin 325 MG TAB ONE (01:04)
[2021-02-25 01:38] LABS: CKMB 2.1 ng/mL (0-6.6)
[2021-02-25] MEDS ORDERED: Furosemide 40 MG/4 ML VIAL ONE (01:44)
[2021-02-25] MEDS ORDERED: Morphine 4 MG/ML VIAL ONE (01:44)
[2021-02-25] MEDS ORDERED: Nitroglycerin 2% Ointment 1 INCH/1 GM Packet ONE (01:44)
[2021-02-25 02:07] LABS: SARS-CoV-2 NAA Rapid Test Not Detected (NotDetected)
[2021-02-25 06:08] LABS: ALT (SGPT) 13 U/L (8-55); AST (SGOT) 18 U/L (5-34); Albumin 3.1 g/dL (3.4-4.8); Alkaline Phosphatase 68 U/L (40-110); Anion Gap 13 mmol/L (10-20); BUN (Urea Nitrogen) 29 mg/dL (9.8-20.1); Bilirubin, Total 0.9 mg/dL (0.2-1.2); Calc. Creatinine Clearance 0 mL/min (70-130); Calcium 9.4 mg/dL (7.8-10.44); Carbon Dioxide 29 mmol/L (23-31); Chloride 97 mmol/L (98-107); Globulin 3.3 g/dL (2.4-3.5); Glucose 180 mg/dL (83-110); Potassium 4.1 mmol/L (3.5-5.1); Protein, Total 6.4 g/dL (5.8-8.1); Sodium 135 mmol/L (136-145)
[2021-02-25 06:13] LABS: Troponin I 0.254 ng/mL (< 0.028)
[2021-02-25 09:08] LABS: Troponin I 0.228 ng/mL (< 0.028)
[2021-02-25] MEDS ORDERED: Dextrose 50% Abboject 50 ML SYRINGE SLOW IVP PRN (10:56)
[2021-02-25] MEDS ORDERED: Ondansetron ODT 4 MG TAB PO PRN (10:56)
[2021-02-25] MEDS ORDERED: Dextrose 5% in Water 1,000 ML IV PRN (10:56)
[2021-02-25] MEDS ORDERED: hydrALAZINE 20 MG/ML VIAL SLOW IVP PRN (10:56)
[2021-02-25] MEDS ORDERED: HumaLOG 300 UNITS/3 ML VIAL SC PRN (10:56)
[2021-02-25] MEDS ORDERED: Ondansetron PF 4 MG/2 ML Vial IVP PRN (10:56)
[2021-02-25 12:08] LABS: Bilirubin Negative (Negative); Blood, Urine Negative (Negative); Clarity Clear (Clear); Glucose, Urine (Dipstick) Normal (Negative); Ketone, Urine Negative (Negative); Leukocyte Negative Leu/uL (Negative); Nitrite Negative (Negative); Protein, Urine (Dipstick) Negative (Neg-Trace); Specific Gravity, Urine 1.014 (1.002-1.036); Urobilinogen Normal mg/dL (Less than 2); pH, Urine 7.5 (5.0-9.0)
[2021-02-25 14:09] VITALS: BMI 20.1
[2021-02-25] MEDS: Furosemide 40 MG/4 ML VIAL SLOW IVP SCH (15:00)
[2021-02-25] MEDS: Gabapentin 400 MG CAP PO SCH ×2 (15:00→22:08)
[2021-02-25] MEDS: metFORMIN 500 MG TAB PO SCH (16:30)
[2021-02-25] MEDS: HumaLOG 300 UNITS/3 ML VIAL SC PRN (18:15)
[2021-02-25] MEDS ORDERED: Non-Formulary Item 1 EACH (Metformin Hcl [Metformin Hcl] 1,000 MG Tablet) PO SCH (21:00)
[2021-02-25] MEDS: GUAIFENESIN SF SOLN 200 MG/10 ML UDCUP PO PRN (22:06)
[2021-02-25] MEDS: Atorvastatin Calcium 40 MG TAB PO SCH (22:08)
[2021-02-25] MEDS: Famotidine 20 MG TAB PO SCH (22:09)
[2021-02-25] MEDS: Amiodarone 200 MG TAB PO SCH (22:13)
[2021-02-26 05:35] LABS: #Lymphocytes 1.4 thou/uL (1.20-3.40); #Monocytes 0.8 thou/uL (0.11-0.59); #Neutrophils 5.6 thou/uL (1.40-6.50); %Basophils 0.4 % (0.0-1.0); %Eosinophils 0.2 % (0.0-10.0); %Lymphocytes 17.2 % (21.0-51.0); %Monocytes 10.6 % (0.0-10.0); %Neutrophils 71.6 % (42.0-75.0); Hemoglobin 9.4 g/dL (12.0-16.0); Mean Corpuscular Hemoglobin 33.5 pg (27.0-31.0); Mean Platelet Volume 7.6 fL (7.4-10.4); Platelet Count 280 thou/uL (130-400); RBC Distribution Width 12.8 % (11.5-14.5); Red Blood Cell (RBC) Count 2.81 mill/uL (4.20-5.40); White Blood Cell (WBC) Count 7.9 thou/uL (4.8-10.8)
[2021-02-26 05:59] LABS: Anion Gap 12 mmol/L (10-20); BUN (Urea Nitrogen) 36 mg/dL (9.8-20.1); Calc. Creatinine Clearance 39 mL/min (70-130); Calcium 9.2 mg/dL (7.8-10.44); Carbon Dioxide 30 mmol/L (23-31); Chloride 99 mmol/L (98-107); Glucose 118 mg/dL (83-110); Potassium 3.9 mmol/L (3.5-5.1); Sodium 137 mmol/L (136-145)
[2021-02-26] MEDS: Furosemide 40 MG/4 ML VIAL SLOW IVP SCH ×2 (06:12→13:14)
[2021-02-26] MEDS: Levothyroxine Sodium 50 MCG TAB PO SCH (06:12)
[2021-02-26] MEDS: GUAIFENESIN SF SOLN 200 MG/10 ML UDCUP PO PRN (07:47)
[2021-02-26] MEDS: metFORMIN 500 MG TAB PO SCH ×2 (08:49→16:25)
[2021-02-26] MEDS: Gabapentin 400 MG CAP PO SCH ×3 (08:49→20:20)
[2021-02-26] MEDS: Aspirin 81 mg Enteric Coated Tablet PO SCH (08:49)
[2021-02-26] MEDS: Folic Acid 1 MG TAB PO SCH (08:51)
[2021-02-26] MEDS: Amiodarone 200 MG TAB PO SCH ×2 (08:51→20:20)
[2021-02-26] MEDS: Magnesium Oxide 400 MG TAB PO SCH (08:51)
[2021-02-26] MEDS: Potassium Chloride 20 MEQ TAB PO SCH (08:51)
[2021-02-26] MEDS: Cyanocobalamin (Vitamin B-12) 1,000 MCG TAB PO SCH (08:51)
[2021-02-26] MEDS: Famotidine 20 MG TAB PO SCH ×2 (08:51→20:20)
[2021-02-26] MEDS ORDERED: Non-Formulary Item 1 EACH (Levothyroxine Sodium [Levothyroxine] 50 MCG Capsule) PO SCH (09:00)
[2021-02-26] MEDS ORDERED: Non-Formulary Item 1 EACH (Magnesium Oxide [Magnesium Oxide] 400 MG Tablet) PO SCH (09:00)
[2021-02-26] MEDS: Acetaminophen 500 MG TAB PO PRN (13:15)
[2021-02-26] MEDS: HumaLOG 300 UNITS/3 ML VIAL SC PRN (13:16)
[2021-02-26] MEDS ORDERED: Magnesium 2 GM/50 ML 2 GM in Premix Bag 1 BAG IVPB SCH (15:30)
[2021-02-26] MEDS: Atorvastatin Calcium 40 MG TAB PO SCH (20:20)
[2021-02-26] MEDS: Benzonatate 100 MG CAP PO PRN (22:51)
[2021-02-27] MEDS ORDERED: Furosemide 40 MG/4 ML VIAL ONE ×2 (03:34→03:45)
[2021-02-27 06:06] LABS: Anion Gap 15 mmol/L (10-20); BUN (Urea Nitrogen) 37 mg/dL (9.8-20.1); Calc. Creatinine Clearance 39 mL/min (70-130); Calcium 9.4 mg/dL (7.8-10.44); Carbon Dioxide 30 mmol/L (23-31); Chloride 95 mmol/L (98-107); Glucose 118 mg/dL (83-110); Magnesium 1.4 mg/dL (1.6-2.6); Potassium 3.9 mmol/L (3.5-5.1); Sodium 136 mmol/L (136-145)
[2021-02-27] MEDS: Levothyroxine Sodium 50 MCG TAB PO SCH (06:18)
[2021-02-27] MEDS ORDERED: Magnesium 2 GM/50 ML 2 GM in Premix Bag 1 BAG IVPB SCH (06:30)
[2021-02-27] MEDS ORDERED: Lidocaine 2% Viscous Solution 10 ML, Aluminum & Magnesium Hydroxide 30 ML SSW SCH (06:45)
[2021-02-27] MEDS ORDERED: Morphine 4 MG/ML VIAL SLOW IVP SCH (06:45)
[2021-02-27 06:52] LABS: Troponin I 0.224 ng/mL (< 0.028)
[2021-02-27] MEDS: Furosemide 40 MG/4 ML VIAL SLOW IVP SCH ×2 (08:23→17:08)
[2021-02-27] MEDS: Aspirin 81 mg Enteric Coated Tablet PO SCH (08:23)
[2021-02-27] MEDS: Gabapentin 400 MG CAP PO SCH ×3 (08:23→21:02)
[2021-02-27] MEDS: Amiodarone 200 MG TAB PO SCH ×2 (08:23→21:02)
[2021-02-27] MEDS: Folic Acid 1 MG TAB PO SCH (08:24)
[2021-02-27] MEDS: Magnesium Oxide 400 MG TAB PO SCH (08:24)
[2021-02-27] MEDS: metFORMIN 500 MG TAB PO SCH ×2 (08:24→17:09)
[2021-02-27] MEDS: Cyanocobalamin (Vitamin B-12) 1,000 MCG TAB PO SCH (08:24)
[2021-02-27] MEDS: Potassium Chloride 20 MEQ TAB PO SCH (08:24)
[2021-02-27] MEDS: Acetaminophen 500 MG TAB PO PRN ×2 (17:09→21:11)
[2021-02-27] MEDS: Carvedilol 3.125 MG TAB PO SCH (17:09)
[2021-02-27] MEDS: Atorvastatin Calcium 40 MG TAB PO SCH (21:02)
[2021-02-27] MEDS: Famotidine 20 MG TAB PO SCH (21:02)
[2021-02-28] MEDS: Levothyroxine Sodium 50 MCG TAB PO SCH (05:25)
[2021-02-28 05:54] LABS: Anion Gap 15 mmol/L (10-20); BUN (Urea Nitrogen) 39 mg/dL (9.8-20.1); Calc. Creatinine Clearance 38 mL/min (70-130); Calcium 9.2 mg/dL (7.8-10.44); Carbon Dioxide 30 mmol/L (23-31); Chloride 96 mmol/L (98-107); Glucose 121 mg/dL (83-110); Magnesium 1.4 mg/dL (1.6-2.6); Potassium 4.5 mmol/L (3.5-5.1); Sodium 136 mmol/L (136-145)
[2021-02-28] MEDS: Furosemide 40 MG/4 ML VIAL SLOW IVP SCH ×2 (09:40→16:16)
[2021-02-28] MEDS: Aspirin 81 mg Enteric Coated Tablet PO SCH (09:40)
[2021-02-28] MEDS: Cyanocobalamin (Vitamin B-12) 1,000 MCG TAB PO SCH (09:40)
[2021-02-28] MEDS: Potassium Chloride 20 MEQ TAB PO SCH (09:40)
[2021-02-28] MEDS: Folic Acid 1 MG TAB PO SCH (09:41)
[2021-02-28] MEDS: Amiodarone 200 MG TAB PO SCH ×2 (09:41→21:06)
[2021-02-28] MEDS: Carvedilol 3.125 MG TAB PO SCH ×2 (09:41→16:16)
[2021-02-28] MEDS: metFORMIN 500 MG TAB PO SCH ×2 (09:41→16:16)
[2021-02-28] MEDS: Gabapentin 400 MG CAP PO SCH ×3 (09:41→21:05)
[2021-02-28] MEDS: Magnesium Oxide 400 MG TAB PO SCH (09:41)
[2021-02-28] MEDS ORDERED: Magnesium Sulfate 2 GM in Sodium Chloride 0.9% 100 ML IVPB SCH (10:45)
[2021-02-28] MEDS ORDERED: Magnesium 2 GM/50 ML 2 GM in Premix Bag 1 BAG IVPB SCH (11:00)
[2021-02-28] MEDS: Atorvastatin Calcium 40 MG TAB PO SCH (21:05)
[2021-02-28] MEDS: Famotidine 20 MG TAB PO SCH (21:06)
[2021-03-01] MEDS ORDERED: Melatonin 3 MG TAB PO PRN (03:14)
[2021-03-01] MEDS ORDERED: diphenhydrAMINE 25 MG CAP PO SCH (03:16)
[2021-03-01] MEDS: Acetaminophen 500 MG TAB PO PRN (03:29)
[2021-03-01 05:30] LABS: Anion Gap 10 mmol/L (10-20); BUN (Urea Nitrogen) 41 mg/dL (9.8-20.1); Calc. Creatinine Clearance 32 mL/min (70-130); Calcium 9.2 mg/dL (7.8-10.44); Carbon Dioxide 34 mmol/L (23-31); Chloride 96 mmol/L (98-107); Glucose 100 mg/dL (83-110); Magnesium 1.5 mg/dL (1.6-2.6); Potassium 4.5 mmol/L (3.5-5.1); Sodium 135 mmol/L (136-145)
[2021-03-01] MEDS: Levothyroxine Sodium 50 MCG TAB PO SCH (05:53)
[2021-03-01] MEDS: Carvedilol 3.125 MG TAB PO SCH ×2 (08:59→19:18)
[2021-03-01] MEDS: Potassium Chloride 20 MEQ TAB PO SCH (09:01)
[2021-03-01] MEDS: Cyanocobalamin (Vitamin B-12) 1,000 MCG TAB PO SCH (09:01)
[2021-03-01] MEDS: Folic Acid 1 MG TAB PO SCH (09:01)
[2021-03-01] MEDS: Gabapentin 400 MG CAP PO SCH ×3 (09:02→22:38)
[2021-03-01] MEDS: Furosemide 40 MG/4 ML VIAL SLOW IVP SCH (09:03)
[2021-03-01] MEDS: Amiodarone 200 MG TAB PO SCH ×2 (09:03→22:39)
[2021-03-01] MEDS: metFORMIN 500 MG TAB PO SCH ×2 (09:03→19:17)
[2021-03-01] MEDS: Aspirin 81 mg Enteric Coated Tablet PO SCH (09:03)
[2021-03-01] MEDS: Magnesium Oxide 400 MG TAB PO SCH ×2 (09:03→22:39)
[2021-03-01] MEDS: Vancomycin 1 GM in Premix Bag 1 BAG IVPB SCH ×2 (12:30→22:39)
[2021-03-01] MEDS ORDERED: Furosemide 20 MG TAB PO SCH (14:00)
[2021-03-01] MEDS: Furosemide 40 MG TAB PO SCH (14:40)
[2021-03-01] MEDS: Famotidine 20 MG TAB PO SCH (22:38)
[2021-03-01] MEDS: Atorvastatin Calcium 40 MG TAB PO SCH (22:38)
[2021-03-02 05:45] LABS: #Basophils 0.1 thou/uL (0.0-0.2); #Eosinphils 0.4 thou/uL (0.0-0.7); #Lymphocytes 1.3 thou/uL (1.20-3.40); #Monocytes 0.9 thou/uL (0.11-0.59); #Neutrophils 4.2 thou/uL (1.40-6.50); %Basophils 0.7 % (0.0-1.0); %Eosinophils 6.2 % (0.0-10.0); %Monocytes 13.2 % (0.0-10.0); %Neutrophils 60.9 % (42.0-75.0); Hemoglobin 10.1 g/dL (12.0-16.0); Mean Corpuscular HGB CONC 32.6 g/dL (32.0-36.0); Mean Corpuscular Hemoglobin 33.5 pg (27.0-31.0); Mean Platelet Volume 7.4 fL (7.4-10.4); Platelet Count 265 thou/uL (130-400); Red Blood Cell (RBC) Count 3.02 mill/uL (4.20-5.40)
[2021-03-02] MEDS: Levothyroxine Sodium 50 MCG TAB PO SCH (05:58)
[2021-03-02 06:07] LABS: Anion Gap 16 mmol/L (10-20); BUN (Urea Nitrogen) 39 mg/dL (9.8-20.1); Calc. Creatinine Clearance 31 mL/min (70-130); Calcium 9.1 mg/dL (7.8-10.44); Carbon Dioxide 26 mmol/L (23-31); Chloride 95 mmol/L (98-107); Glucose 116 mg/dL (83-110); Potassium 4.3 mmol/L (3.5-5.1); Sodium 133 mmol/L (136-145)
[2021-03-02] MEDS: Aspirin 81 mg Enteric Coated Tablet PO SCH (09:13)
[2021-03-02] MEDS: Gabapentin 400 MG CAP PO SCH ×3 (09:13→21:16)
[2021-03-02] MEDS: Potassium Chloride 20 MEQ TAB PO SCH (09:13)
[2021-03-02] MEDS: Magnesium Oxide 400 MG TAB PO SCH ×2 (09:14→21:16)
[2021-03-02] MEDS: Amiodarone 200 MG TAB PO SCH ×2 (09:14→21:16)
[2021-03-02] MEDS: Cyanocobalamin (Vitamin B-12) 1,000 MCG TAB PO SCH (09:14)
[2021-03-02] MEDS: Carvedilol 3.125 MG TAB PO SCH ×2 (09:14→17:10)
[2021-03-02] MEDS: Folic Acid 1 MG TAB PO SCH (09:14)
[2021-03-02] MEDS: Furosemide 40 MG TAB PO SCH ×2 (09:14→14:02)
[2021-03-02] MEDS: metFORMIN 500 MG TAB PO SCH ×2 (09:14→17:10)
[2021-03-02] MEDS: Acetaminophen 500 MG TAB PO PRN (09:55)
[2021-03-02] MEDS: Benzonatate 100 MG CAP PO PRN (09:56)
[2021-03-02] MEDS: Vancomycin 1 GM in Premix Bag 1 BAG IVPB SCH ×2 (11:03→22:11)
[2021-03-02] MEDS ORDERED: Lidocaine 5% Patch TD SCH (11:45)
[2021-03-02] MEDS ORDERED: Lidocaine 5% Patch ONE (12:07)
[2021-03-02] MEDS ORDERED: Transdermal Patch Removal TOP SCH (21:00)
[2021-03-02] MEDS: Famotidine 20 MG TAB PO SCH (21:16)
[2021-03-02] MEDS: Atorvastatin Calcium 40 MG TAB PO SCH (21:17)
[2021-03-03] MEDS: Levothyroxine Sodium 50 MCG TAB PO SCH (06:33)
[2021-03-03] MEDS ORDERED: Lidocaine 5% Patch TD SCH (09:00)
[2021-03-03] MEDS: Magnesium Oxide 400 MG TAB PO SCH (09:06)
[2021-03-03] MEDS: Aspirin 81 mg Enteric Coated Tablet PO SCH (09:06)
[2021-03-03] MEDS: metFORMIN 500 MG TAB PO SCH ×2 (09:06→16:35)
[2021-03-03] MEDS: Gabapentin 400 MG CAP PO SCH ×2 (09:07→14:51)
[2021-03-03] MEDS: Potassium Chloride 20 MEQ TAB PO SCH (09:07)
[2021-03-03] MEDS: Amiodarone 200 MG TAB PO SCH (09:07)
[2021-03-03] MEDS: Acetaminophen 500 MG TAB PO PRN (09:07)
[2021-03-03] MEDS: Cyanocobalamin (Vitamin B-12) 1,000 MCG TAB PO SCH (09:07)
[2021-03-03] MEDS: Carvedilol 3.125 MG TAB PO SCH ×2 (09:07→16:35)
[2021-03-03] MEDS: Benzonatate 100 MG CAP PO PRN (09:07)
[2021-03-03] MEDS: Folic Acid 1 MG TAB PO SCH (09:07)
[2021-03-03] MEDS: Furosemide 40 MG TAB PO SCH ×2 (09:57→13:21)
[2021-03-03] MEDS: Vancomycin 1 GM in Premix Bag 1 BAG IVPB SCH (10:21)
[2021-03-03 16:43] VITALS: BP 114/55; TEMP 98.1
[2021-03-03 16:52] LABS: SARS-CoV-2 PCR by NAA Not Detected (NotDetected)
[2021-03-03] MEDS ORDERED: Senokot 8.6 MG TAB PO SCH (21:00)
== END 2021-03-03 18:17 | DRG 280 ==
LOC: ERS 00:05 → ERHOLD 03:26 → 2NO 03:29
PROVIDERS: ADMIT Student in an Organized Health Care Education/Training Program; ATTEND Family Medicine
DX: I11.0 Hypertensive heart disease with heart failure (principal); I50.23 Acute on chronic systolic (congestive) heart failure; I21.9 Acute myocardial infarction, unspecified; J96.01 Acute respiratory failure with hypoxia; J15.8 Pneumonia due to other specified bacteria; I47.1 Supraventricular tachycardia; Z20.822 Contact with and (suspected) exposure to COVID-19; M19.90 Unspecified osteoarthritis, unspecified site; R79.89 Other specified abnormal findings of blood chemistry; I42.9 Cardiomyopathy, unspecified; I95.9 Hypotension, unspecified; I25.5 Ischemic cardiomyopathy; I44.7 Left bundle-branch block, unspecified; E03.9 Hypothyroidism, unspecified; E11.9 Type 2 diabetes mellitus without complications; E78.5 Hyperlipidemia, unspecified; E83.42 Hypomagnesemia; Z82.49 Family history of ischemic heart disease and other diseases of the circulatory system; Z83.3 Family history of diabetes mellitus; Z90.49 Acquired absence of other specified parts of digestive tract; Z90.710 Acquired absence of both cervix and uterus; Z88.0 Allergy status to penicillin; Z88.2 Allergy status to sulfonamides; Z79.84 Long term (current) use of oral hypoglycemic drugs; Z79.82 Long term (current) use of aspirin; Z79.890 Hormone replacement therapy
CPT/HCPCS: 36415; 36416; 51702; 71045; 80048; 80053; 81003; 82553; 83735; 83880; 84484; 85025; 87086; 93005; 93010; 93306; 93798; 94640; 96374; 96375; J1815; J1940; J1956; J2270; J2405; J2920; J3370; J3475; J7620; U0002; U0003; U0005

== ENCOUNTER 2021-03-20 04:27 | Inpatient (IN) | payer MEDICARE ==
[2021-03-20 05:07] LABS: #Basophils 0.1 thou/uL (0.0-0.2); #Eosinphils 0.3 thou/uL (0.0-0.7); #Lymphocytes 0.9 thou/uL (1.20-3.40); #Neutrophils 8.7 thou/uL (1.40-6.50); %Basophils 0.5 % (0.0-1.0); %Eosinophils 2.3 % (0.0-10.0); %Lymphocytes 7.8 % (21.0-51.0); %Neutrophils 80.4 % (42.0-75.0); Hemoglobin 10.4 g/dL (12.0-16.0); Mean Corpuscular HGB CONC 30.4 g/dL (32.0-36.0); Mean Corpuscular Hemoglobin 31.6 pg (27.0-31.0); Mean Platelet Volume 7.9 fL (7.4-10.4); Platelet Count 379 thou/uL (130-400); RBC Distribution Width 14.6 % (11.5-14.5); White Blood Cell (WBC) Count 10.9 thou/uL (4.8-10.8)
[2021-03-20 05:26] LABS: ALT (SGPT) 15 U/L (8-55); AST (SGOT) 24 U/L (5-34); Albumin 2.8 g/dL (3.4-4.8); Alkaline Phosphatase 61 U/L (40-110); Anion Gap 15 mmol/L (10-20); BUN (Urea Nitrogen) 32 mg/dL (9.8-20.1); Bilirubin, Total 1.1 mg/dL (0.2-1.2); Calc. Creatinine Clearance 0 mL/min (70-130); Calcium 10.2 mg/dL (7.8-10.44); Carbon Dioxide 24 mmol/L (23-31); Chloride 100 mmol/L (98-107); Globulin 3.8 g/dL (2.4-3.5); Glucose 121 mg/dL (83-110); Potassium 4.7 mmol/L (3.5-5.1); Protein, Total 6.6 g/dL (5.8-8.1); Sodium 134 mmol/L (136-145)
[2021-03-20] MEDS ORDERED: Cefepime 2 GM VIAL ONE (05:50)
[2021-03-20 06:01] LABS: CKMB 1.4 ng/mL (0-6.6)
[2021-03-20] MEDS ORDERED: Vancomycin 1 GM/200 ML BAG ONE (06:25)
[2021-03-20] MEDS ORDERED: Ondansetron PF 4 MG/2 ML Vial IVP PRN (08:57)
[2021-03-20] MEDS ORDERED: HumaLOG 300 UNITS/3 ML VIAL SC PRN (09:01)
[2021-03-20] MEDS ORDERED: Dextrose 5% in Water 1,000 ML IV PRN (09:01)
[2021-03-20] MEDS ORDERED: Dextrose 50% Abboject 50 ML SYRINGE SLOW IVP PRN (09:01)
[2021-03-20] MEDS ORDERED: Acetaminophen 325 MG TAB ONE (09:39)
[2021-03-20] MEDS: Acetaminophen 325 MG TAB PO PRN (09:46)
[2021-03-20 09:51] LABS: Lactic Acid 2.7 mmol/L (0.5-2.2)
[2021-03-20 10:49] LABS: Glucose 154 mg/dL (83-110)
[2021-03-20 11:25] LABS: SARS-CoV-2 PCR by NAA Not Detected (NotDetected)
[2021-03-20 11:40] VITALS: BMI 19.4
[2021-03-20] MEDS: Aspirin 81 mg Enteric Coated Tablet PO SCH (13:04)
[2021-03-20] MEDS: Enoxaparin Sodium 40 MG/0.4 ML SYRINGE SC SCH (13:04)
[2021-03-20] MEDS: Amiodarone 200 MG TAB PO SCH ×2 (13:04→20:55)
[2021-03-20] MEDS: Gabapentin 400 MG CAP PO SCH ×3 (13:05→20:55)
[2021-03-20] MEDS: Sucralfate 1 GM TAB PO SCH ×2 (13:05→17:12)
[2021-03-20] MEDS ORDERED: Meropenem 1 GM in Sodium Chloride 0.9% 100 ML IVPB SCH (14:00)
[2021-03-20] MEDS: Furosemide 40 MG/4 ML VIAL SLOW IVP SCH (14:35)
[2021-03-20] MEDS: Carvedilol 3.125 MG TAB PO SCH (17:13)
[2021-03-20] MEDS: Atorvastatin Calcium 40 MG TAB PO SCH (20:55)
[2021-03-20] MEDS ORDERED: Vancomycin 1 GM in Premix Bag 1 BAG IVPB SCH (21:00)
[2021-03-21] MEDS: Sucralfate 1 GM TAB PO SCH ×5 (00:23→20:49)
[2021-03-21] MEDS: Meropenem 1 GM in Sodium Chloride 0.9% 100 ML IVPB SCH ×2 (00:31→13:38)
[2021-03-21 04:22] LABS: Anion Gap 12 mmol/L (10-20); BUN (Urea Nitrogen) 31 mg/dL (9.8-20.1); Calc. Creatinine Clearance 44 mL/min (70-130); Calcium 9.5 mg/dL (7.8-10.44); Carbon Dioxide 29 mmol/L (23-31); Chloride 97 mmol/L (98-107); Glucose 117 mg/dL (83-110); Potassium 4.4 mmol/L (3.5-5.1); Sodium 134 mmol/L (136-145)
[2021-03-21 04:24] LABS: #Eosinphils 0.3 thou/uL (0.0-0.7); #Lymphocytes 0.8 thou/uL (1.20-3.40); #Monocytes 1.1 thou/uL (0.11-0.59); #Neutrophils 8.8 thou/uL (1.40-6.50); %Basophils 0.4 % (0.0-1.0); %Eosinophils 2.8 % (0.0-10.0); %Lymphocytes 7.6 % (21.0-51.0); %Monocytes 9.9 % (0.0-10.0); %Neutrophils 79.3 % (42.0-75.0); Hemoglobin 9.9 g/dL (12.0-16.0); Mean Corpuscular HGB CONC 32.3 g/dL (32.0-36.0); Mean Corpuscular Hemoglobin 32.2 pg (27.0-31.0); Mean Corpuscular Volume 99.9 fL (78.0-98.0); Mean Platelet Volume 8.2 fL (7.4-10.4); Platelet Count 356 thou/uL (130-400); RBC Distribution Width 14.6 % (11.5-14.5); Red Blood Cell (RBC) Count 3.06 mill/uL (4.20-5.40)
[2021-03-21] MEDS: Benzonatate 100 MG CAP PO PRN ×2 (04:43→20:40)
[2021-03-21] MEDS: Furosemide 40 MG/4 ML VIAL SLOW IVP SCH ×2 (05:03→13:41)
[2021-03-21] MEDS: Vancomycin HCl 750 MG in Sodium Chloride 0.9% 250 ML 250 ML IVPB SCH (06:03)
[2021-03-21] MEDS: Enoxaparin Sodium 40 MG/0.4 ML SYRINGE SC SCH (07:41)
[2021-03-21] MEDS: Carvedilol 3.125 MG TAB PO SCH ×2 (07:42→18:47)
[2021-03-21] MEDS: Amiodarone 200 MG TAB PO SCH ×2 (07:42→20:48)
[2021-03-21] MEDS: Aspirin 81 mg Enteric Coated Tablet PO SCH (07:42)
[2021-03-21] MEDS: Gabapentin 400 MG CAP PO SCH ×3 (07:42→20:41)
[2021-03-21] MEDS: Acetaminophen 325 MG TAB PO PRN ×2 (13:47→20:40)
[2021-03-21 13:54] VITALS: BP 99/53
[2021-03-21] MEDS: Sodium Chloride 0.9% 1,000 ML IV SCH (18:46)
[2021-03-21] MEDS: Atorvastatin Calcium 40 MG TAB PO SCH (20:40)
[2021-03-22] MEDS: Meropenem 1 GM in Sodium Chloride 0.9% 100 ML IVPB SCH ×2 (00:03→14:18)
[2021-03-22 07:57] LABS: Glucose 124 mg/dL (83-110)
[2021-03-22 08:01] LABS: Vancomycin, Trough 10.4 ug/mL
[2021-03-22] MEDS: Vancomycin HCl 750 MG in Sodium Chloride 0.9% 250 ML 250 ML IVPB SCH (08:41)
[2021-03-22] MEDS: Sucralfate 1 GM TAB PO SCH ×4 (10:06→20:09)
[2021-03-22] MEDS: Aspirin 81 mg Enteric Coated Tablet PO SCH (10:06)
[2021-03-22] MEDS: Gabapentin 400 MG CAP PO SCH ×3 (10:06→20:09)
[2021-03-22] MEDS: Enoxaparin Sodium 40 MG/0.4 ML SYRINGE SC SCH (10:07)
[2021-03-22] MEDS: Vancomycin 1 GM in Premix Bag 1 BAG IVPB SCH (10:07)
[2021-03-22] MEDS: Amiodarone 200 MG TAB PO SCH ×2 (10:07→20:08)
[2021-03-22 12:17] LABS: Glucose 198 mg/dL (83-110)
[2021-03-22] MEDS: Sodium Chloride 0.9% 1,000 ML IV SCH (14:18)
[2021-03-22 17:32] LABS: Glucose 146 mg/dL (83-110)
[2021-03-22] MEDS: Atorvastatin Calcium 40 MG TAB PO SCH (20:08)
[2021-03-22] MEDS: Benzonatate 100 MG CAP PO PRN (20:09)
[2021-03-22] MEDS: Acetaminophen 325 MG TAB PO PRN (20:09)
[2021-03-22 22:53] LABS: Glucose 193 mg/dL (83-110)
[2021-03-23] MEDS: Meropenem 1 GM in Sodium Chloride 0.9% 100 ML IVPB SCH (01:34)
[2021-03-23 08:40] VITALS: TEMP 97.8
[2021-03-23 09:03] LABS: Glucose 123 mg/dL (83-110)
[2021-03-23] MEDS: Sucralfate 1 GM TAB PO SCH (09:06)
[2021-03-23] MEDS: Aspirin 81 mg Enteric Coated Tablet PO SCH (09:06)
[2021-03-23] MEDS: Vancomycin 1 GM in Premix Bag 1 BAG IVPB SCH (09:06)
[2021-03-23] MEDS: Amiodarone 200 MG TAB PO SCH (09:06)
[2021-03-23] MEDS: Gabapentin 400 MG CAP PO SCH (09:06)
[2021-03-23] MEDS: Enoxaparin Sodium 40 MG/0.4 ML SYRINGE SC SCH (09:07)
[2021-04-04] MEDS ORDERED: Amiodarone 200 MG TAB PO SCH (09:00)
== END 2021-03-23 11:12 | disposition hospice, home (50) | DRG 871 ==
LOC: ERS 04:27 → ERHOLD 06:06 → IMCU/EMU 10:39
PROVIDERS: ADMIT Student in an Organized Health Care Education/Training Program; ATTEND Internal Medicine
PROC: 5A09357 Assistance with Respiratory Ventilation, Less than 24 Consecutive Hours, Continuous Positive Airway Pressure (ICD-10-PCS; principal; 2021-03-20)
DX: A41.9 Sepsis, unspecified organism (principal); J18.9 Pneumonia, unspecified organism; J96.01 Acute respiratory failure with hypoxia; I50.23 Acute on chronic systolic (congestive) heart failure; R64 Cachexia; Z68.1 Body mass index [BMI] 19.9 or less, adult; Z66 Do not resuscitate; Z51.5 Encounter for palliative care; Z20.822 Contact with and (suspected) exposure to COVID-19; R65.20 Severe sepsis without septic shock; I25.5 Ischemic cardiomyopathy; E78.5 Hyperlipidemia, unspecified; E03.9 Hypothyroidism, unspecified; I10 Essential (primary) hypertension; E11.9 Type 2 diabetes mellitus without complications; M19.90 Unspecified osteoarthritis, unspecified site; Z86.79 Personal history of other diseases of the circulatory system; Z88.0 Allergy status to penicillin; Z88.2 Allergy status to sulfonamides; Z98.890 Other specified postprocedural states; Z90.710 Acquired absence of both cervix and uterus; Z90.49 Acquired absence of other specified parts of digestive tract; Z79.899 Other long term (current) drug therapy; Z79.84 Long term (current) use of oral hypoglycemic drugs; Z79.890 Hormone replacement therapy; Z79.82 Long term (current) use of aspirin
CPT/HCPCS: 36415; 36416; 71045; 80048; 80202; 82553; 82947; 83605; 83880; 84145; 84484; 85025; 87040; 93005; 94660; 96365; 96366; 96368; J0692; J1650; J1940; J1956; J2185; J3370; J3490; J7050; U0003; U0005